=== PATIENT | female | born 1975 ===

== ENCOUNTER 2016-05-29 10:21 | Emergency (ER) | payer MEDICAID, OTHER ==
[2016-05-29 10:33] VITALS: BMI 22.4
[2016-05-29 11:58] LABS: BASO % 0.6 % (0.0-2.0); EOS # 0.1 K/uL (0.0-0.7); EOS % 1.1 % (0.0-4.0); HEMATOCRIT 37.8 % (34.0-47.0); LYMPH # 1.6 K/uL (1.0-4.3); LYMPH % 23.5 % (20.0-40.0); MEAN CELL VOLUME 85.7 fL (81.0-99.0); MEAN CORPUSCULAR HEMOGLOBIN 28.7 pg (27.0-31.0); MEAN CORPUSCULAR HGB CONC 33.5 g/dL (33.0-37.0); MEAN PLATELET VOLUME 9.6 fL (7.2-11.7); MONO # 0.5 K/uL (0.0-0.8); MONO % 7.6 % (0.0-10.0); RED CELL DISTRIBUTION WIDTH 14.6 % (11.5-14.5); WHITE BLOOD COUNT 6.6 K/uL (4.8-10.8)
[2016-05-29 12:08] LABS: CHLORIDE 103 mmol/L (98-107)
[2016-05-29 12:09] LABS: SODIUM 143 mmol/L (132-148)
[2016-05-29 12:11] LABS: ALB/GLOB RATIO 1.5 (1.0-2.1); AST/SGOT 19 U/L (14-36); BILIRUBIN,TOTAL 0.6 mg/dL (0.2-1.3); BLOOD UREA NITROGEN 10 mg/dL (7-17); CARBON DIOXIDE 24 mmol/L (22-30); GFR AFRICAN-AMERICAN > 60; TOTAL PROTEIN 7.7 g/dL (6.3-8.3)
[2016-05-29 12:12] LABS: ALKALINE PHOSPHATASE 60 U/L (38-126); ALT/SGPT 15 U/L (9-52); CALCIUM 8.9 mg/dl (8.6-10.4); GLUCOSE,RANDOM 95 mg/dL (65-105)
[2016-05-29 12:13] LABS: INR 1.1
--- NOTE | 2016-05-29 12:13 | C.PDOC ---
History Of Present Illness 41 year old patient presents to the ED complaining of posterior aspect of the head and neck pain for the past 5 months. Patient states she has mild relief of pain after taking Motrin. Patient was hospitalized here in August 2014 for a headache while she was . 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 Patient did not follow up with a neurologist. The pain is worse with bending the neck down. Patient denies fever, chills, numbness weakness, tingling sensation, or trauma. Time Seen by Provider: 05/29/16 11:04 Chief Complaint (Nursing): Back Pain History Per: Patient History/Exam Limitations: no limitations Onset/Duration Of Symptoms: Other (5 months) Current Symptoms Are (Timing): Still Present Quality Of Discomfort: "Pain" Severity: Mild Pain Scale Rating Of: 3 Previous Symptoms: Neck Pain Associated Symptoms: None Exacerbating Factor(s): Other (bending neck down) Recent travel outside of the [place]: No Past Medical History Reviewed: Historical Data, Nursing Documentation, Vital Signs Vital Signs: Last Vital Signs Temp 98.3 F 05/29/16 10:42 Pulse 82 05/29/16 10:42 Resp 20 05/29/16 10:42 BP 101/64 05/29/16 10:42 Pulse Ox 98 05/29/16 10:42 - Medical History PMH: Denies: Deep Vein Thrombosis (on anticoagulants) Surgical History: - [facility] Procedures ESOPHAGOGASTRODUODENOSCOPY [EGD] W/CLOSED BIOPSY (06/17/13) Family History: States: Unknown Family Hx - Social History Hx Tobacco Use: No Hx Alcohol Use: No Hx Substance Use: No - Immunization History Hx Tetanus Toxoid Vaccination: No Hx Influenza Vaccination: No Hx Pneumococcal Vaccination: No Review Of Systems Except As Marked, All Systems Reviewed And Found Negative. Constitutional: Negative for: Fever, Chills Musculoskeletal: Positive for: Neck Pain Neurological: Positive for: Headache (posterior aspect). Negative for: Weakness , Numbness Physical Exam - Physical Exam Appears: Non-toxic, No Acute Distress Skin: Warm, Dry Head: Atraumatic, Normacephalic Eye(s): bilateral: PERRL, EOMI Ear(s): Bilateral: Normal Nose: Normal Oral Mucosa: Moist Neck: Normal ROM, No Midline Cervical Tenderness, Supple Chest: Symmetrical Cardiovascular: Rhythm Regular Respiratory: Normal Breath Sounds, No Rales, No Rhonchi, No Wheezing Gastrointestinal/Abdominal: Soft, No Tenderness Back: Normal Inspection, No CVA Tenderness Extremity: Normal ROM Neurological/Psych: Oriented x3, Normal Speech, Normal Cognition, Normal Cranial Nerves, Normal Motor, Normal Sensation Gait: Steady ED Course And Treatment - Laboratory Results Result Diagrams: 05/29/16 11:49 05/29/16 11:49 O2 Sat by Pulse Oximetry: 98 (RA) Pulse Ox Interpretation: Normal - PA / SWATCHER / Resident Statement MD/DO has reviewed & agrees with the documentation as recorded. - Scribe Statement The provider has reviewed the documentation as recorded by the Scribe Mae Rodriguez All medical record entries made by the Scribe were at my direction and personally dictated by me. I have reviewed the chart and agree that the record accurately reflects my personal performance of the history, physical exam, medical decision making, and the department course for this patient. I have also personally directed, reviewed, and agree with the discharge instructions and disposition.
--- NOTE | 2016-05-29 12:21 | C.PDOC ---
History Of Present Illness 41 year old patient presents to the ED complaining of posterior aspect of the head and neck pain for the past 5 months. Patient states she has mild relief of pain after taking Motrin. Patient was hospitalized here in August 2014 for a headache while she was . 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 Patient did not follow up with a neurologist. The pain is worse with bending the neck down. Patient denies fever, chills, numbness weakness, tingling sensation, or trauma. Time Seen by Provider: 05/29/16 11:04 Chief Complaint (Nursing): Back Pain History Per: Patient History/Exam Limitations: no limitations Onset/Duration Of Symptoms: Other (5 months) Current Symptoms Are (Timing): Still Present Quality Of Discomfort: "Pain" Severity: Moderate Pain Scale Rating Of: 4 Previous Symptoms: Neck Pain Associated Symptoms: None Exacerbating Factor(s): Other (bending neck down) Recent travel outside of the [place]: No Past Medical History Reviewed: Historical Data, Nursing Documentation, Vital Signs Vital Signs: Last Vital Signs Temp 98.2 F 05/29/16 14:32 Pulse 64 05/29/16 14:32 Resp 18 05/29/16 14:32 BP 101/65 05/29/16 14:32 Pulse Ox 98 05/29/16 16:05 - Medical History PMH: Denies: Deep Vein Thrombosis (on anticoagulants) Surgical History: - [facility] Procedures ESOPHAGOGASTRODUODENOSCOPY [EGD] W/CLOSED BIOPSY (06/17/13) Family History: States: Unknown Family Hx - Social History Hx Tobacco Use: No Hx Alcohol Use: No Hx Substance Use: No - Immunization History Hx Tetanus Toxoid Vaccination: No Hx Influenza Vaccination: No Hx Pneumococcal Vaccination: No Review Of Systems Except As Marked, All Systems Reviewed And Found Negative. Constitutional: Negative for: Fever, Chills Musculoskeletal: Positive for: Neck Pain Neurological: Positive for: Headache (posterior aspect). Negative for: Weakness , Numbness Physical Exam - Physical Exam Appears: Non-toxic, No Acute Distress Skin: Warm, Dry Head: Atraumatic, Normacephalic Eye(s): bilateral: PERRL, EOMI Ear(s): Bilateral: Normal Nose: Normal Oral Mucosa: Moist Throat: Normal Neck: Normal ROM, No Midline Cervical Tenderness, Supple Chest: Symmetrical Cardiovascular: Rhythm Regular Respiratory: Normal Breath Sounds, No Rales, No Rhonchi, No Wheezing Gastrointestinal/Abdominal: Soft, No Tenderness Back: Normal Inspection, No CVA Tenderness Extremity: Normal ROM Neurological/Psych: Oriented x3, Normal Speech, Normal Cognition, Normal Cranial Nerves, Normal Motor, Normal Sensation Gait: Steady ED Course And Treatment - Laboratory Results Result Diagrams: 05/29/16 11:49 05/29/16 11:49 O2 Sat by Pulse Oximetry: 98 (room air) Pulse Ox Interpretation: Normal - CT Scan/US Cspine CT Other Rad Studies (CT/US): Read By Radiologist (Jayjay Baltazar), Radiology Report Reviewed CT/US Interpretation: EXAM: CT Cervical Spine With Intravenous Contrast. CLINICAL HISTORY: 41 years old, female; Condition or disease; Other: Chiari 1 malformation; Additional info: Neck pain. and CAST x 5 mo. TECHNIQUE: Axial computed tomography images of the cervical spine with intravenous contrast. This CT exam. was performed using one or more of the following dose reduction techniques: automated exposure. control, adjustment of the mA and/or kV according to patient size, and/or use of iterative. reconstruction technique. CONTRAST: 100 mL of VISIPAQUE administered intravenously. COMPARISON: MR - SPINAL CANAL CERVICAL W/O CONT 08/30/2014 10:30:56 AM. FINDINGS: Vertebrae: Unremarkable. No acute fracture. Discs/spinal canal/neural foramina: No acute findings. No spinal canal stenosis. Soft tissues: Unremarkable. Vasculature: The patient is left vertebral artery dominant. Oropharynx: The cerebellar tonsils are low-lying consistent with patient's known history of Chiari 1. malformation. Thyroid: There is a 1 cm right thyroid nodule. Lung apices: Unremarkable as visualized. Other findings: There is a poorly defined cervical syrinx. This has been described previously. Followup MRI if clinically indicated. IMPRESSION: 1. There is a poorly defined cervical syrinx. This has been described previously. Followup MRI if. clinically indicated. 2. The cerebellar tonsils are low-lying consistent with patient's known history of Chiari 1. malformation. Head CT Other Rad Studies (CT/US): Read By Radiologist (Jayjay Baltazar), Radiology Report Reviewed CT/US Interpretation: EXAM: CT Head With Intravenous Contrast. CLINICAL HISTORY: 41 years old, female; Condition or disease; Other: Chiari 1 malformation; Additional info: CAST x 5. months. TECHNIQUE: Axial computed tomography images of the head/brain with intravenous contrast. This CT exam was. performed using one or more of the following dose reduction techniques: automated exposure. control, adjustment of the mA and/or kV according to patient size, and/or use of iterative. reconstruction technique. CONTRAST: 100 mL of VISIPAQUE administered intravenously. COMPARISON: CT - HEAD W/O CONTRAST 08/28/2014 12:37:40 PM. FINDINGS: Brain: The cerebellar tonsils are low-lying. Patient has a known history of Chiari 1 malformation. No. hemorrhage. Ventricles: Unremarkable. No ventriculomegaly. Bones/joints: Unremarkable. No acute fracture. Soft tissues: Unremarkable. Sinuses: There is a left maxillary sinus air-fluid level. Mastoid air cells: Unremarkable as visualized. No mastoid effusion. Sella: The pituitary is prominent. Clinical findings will determine the need for further evaluation with. MRI. IMPRESSION : 1. The cerebellar tonsils are low-lying. Patient has a known history of Chiari 1 malformation. 2. The pituitary is prominent. Clinical findings will determine the need for further evaluation with MRI. 3. There is a left maxillary sinus air-fluid level. Medical Decision Making Medical Decision Making: pt currently nurses her 15 month old child. aviation electrical technician aware and will inform us for how long pt will need to pump and dump breast milk before she may resume . [address] scans of cervical spine and head show no acute findings. will refer pt to med clinic and to neurology. pt made aware to pump and dump for 24 hours. Disposition - Disposition Referrals: Clinic,Med Surg [Primary Care Provider] - Rolando Mercedes MD [Staff Provider] - [facility] [Outside] [facility] [Outside] Disposition: HOME/ ROUTINE Disposition Time: 16:17 Condition: STABLE Additional Instructions: [place] Ibuprofen 600 mg por va oral cada 6 horas. [place] Tylenol (acetaminofeno) 1000 mg por va oral cada 6 horas. [place] Omeprazol a la hora de acostarse. Seguimiento en clnica mdica y con neurlogo. Para las prximas 24 horas. Vaciar toda la leche materna. Usted puede comenzar a amamantar de nuevo despus de eso Forms: Gen Discharge Inst Romanian - Clinical Impression Clinical Impression: Headache, Chiari I malformation - PA / ROAST MASTER / Resident Statement MD/DO has reviewed & agrees with the documentation as recorded. - Scribe Statement The provider has reviewed the documentation as recorded by the Scribe Mae Rodriguez All medical record entries made by the Scribe were at my direction and personally dictated by me. I have reviewed the chart and agree that the record accurately reflects my personal performance of the history, physical exam, medical decision making, and the department course for this patient. I have also personally directed, reviewed, and agree with the discharge instructions and disposition.
[2016-05-29] MEDS ORDERED: Iodixanol 320 MG/ML 100 ML BOTTLE IV ONE (13:38)
[2016-05-29 14:32] VITALS: RESP 18; TEMP 98.2
--- NOTE | 2016-05-29 16:05 | CT ---
PROCEDURE: CT HEAD WITH CONTRAST HISTORY: wooten x 5 months COMPARISON: Comparison made with prior MRI of the cervical spine dated 08/30/2014. Comparison also made with MRI of the cervical spine dated 08/28/2014. TECHNIQUE: Axial computed tomography images were obtained through the head/brain with intravenous contrast. Contrast dose: 100 cc of of Visipaque 320 contrast material Radiation dose: Total exam DLP = 824.23 MGy-cm. This CT exam was performed using one or more of the following dose reduction techniques: Automated exposure control, adjustment of the mA and/or kV according to patient size, and/or use of iterative reconstruction technique. FINDINGS: HEMORRHAGE: No acute parenchymal, subarachnoid or extra-axial hemorrhage. BRAIN: No enhancing parenchymal nor extra-axial masses or collections seen on this noncontrast study. No evidence of abnormal meningeal enhancement. Ventricular and sulcal size are within range of normal for this patient's stated age. Re- demonstrated is evidence of herniation of cerebellar tonsils through the foramen magnum consistent with Chiari 1 malformation. Previously noted syrinx cavity in the upper cervical spine not appreciated on this study. Note that these changes are seen to better advantage on prior MRI of the brain and cervical spine. Please refer to those prior MRI reports for additional details. Note again made of prominent pituitary gland felt to be physiologic. VENTRICLES: No evidence of obstructive hydrocephalus. CALVARIUM: Calvarium is intact. PARANASAL SINUSES: Mucosal thickening left maxillary antrum. Small fluid level not excluded. There is also a minor mucosal thickening seen within several posterior ethmoid air cells. MASTOID AIR CELLS: Unremarkable as visualized. No mastoid effusion. OTHER FINDINGS: Orbits and contents unremarkable. IMPRESSION: Findings consistent with Chiari 1 malformation. No evidence of obstructive hydrocephalus. Prominent pituitary gland felt to be physiologic. Mild mucosal thickening with questionable small fluid level left maxillary antrum. .
--- NOTE | 2016-05-29 16:17 | CT ---
PROCEDURE: CT Cervical Spine without contrast HISTORY: <neck pain and wooten x 5 mo> COMPARISON: Comparison made with prior MRI of the cervical spine dated 08/30/2014. TECHNIQUE: Axial computed tomography images were obtained of the cervical spine without the use of intravenous contrast (100 cc Visipaque 320 contrast material). Coronal and sagittal reformatted images were created and reviewed. Radiation dose: Total exam DLP = 135.71. MGy-cm. This CT exam was performed using one or more of the following dose reduction techniques: Automated exposure control, adjustment of the mA and/or kV according to patient size, and/or use of iterative reconstruction technique. FINDINGS: VERTEBRAE: No fracture. Normal alignment. No destructive bony lesion. DISCS/SPINAL CANAL/NEURAL FORAMINA: No significant central canal or neural foraminal stenosis. Discs heights are grossly preserved. PARASPINAL SOFT TISSUES: Unremarkable. OTHER FINDINGS: Re- demonstrated is herniation of cerebellar tonsils through the foramen magnum the consistent with Chiari 1 malformation. Previously noted syrinx cavity which was seen extending from the C2 through the T3 level is less well seen on this study as compared to high-resolution . Please refer that report for additional details. No abnormal enhancement is identified on this exam. Note made of ill-defined approximately 1 cm hypodense focus right lobe thyroid gland. . Slight heterogeneous appearance of the inferior aspect left lobe thyroid gland. . Recommend followup thyroid ultrasound. IMPRESSION: Chiari 1 malformation as described. Extensive syrinx cavity in the extending from the upper cervical through the upper thoracic spinal cord not appreciated on this study. Please refer to prior MRI of the cervical spine 08/30/2014 for additional details. . Ill-defined approximate 1 cm hypodense nodule right lobe thyroid gland. Recommend followup thyroid ultrasound.
[2016-05-29 16:24] VITALS: BP 112/68; PULSE 69; O2SAT 99
== END 2016-05-29 16:25 | disposition home or self-care (01) ==
LOC: SUPCPDRO 10:21 → C.ER 10:21
DX: G93.5 Compression of brain (principal); R51 Headache
CPT/HCPCS: 70460; 72126; 80053; 84703; 85025; 85610; 85730; 99284; Q9967

== ENCOUNTER 2016-10-04 14:35 | Emergency (ER) | payer OTHER, SELFPAY ==
[2016-10-04 14:35] VITALS: BMI 22.4
[2016-10-04 14:48] VITALS: BP 98/65; PULSE 82; RESP 18; TEMP 98.6; O2SAT 96
--- NOTE | 2016-10-04 15:42 | C.PDOC ---
History Of Present Illness 41 y/o female c/o worsening headache, cervical pain, facial paresthesia, and left leg weakness vs discoordination for the past 6 weeks. Patient was diagnosed with chiari malformation and cervical syrinx. Patient was evaluated by Dr. Larsen in July, though symptoms worsened ever since visit. Denies fever, chills, chest pain, SOB, neck pain, visual changes, photophobia, or any other complaints. Time Seen by Provider: 10/04/16 14:56 Chief Complaint (Nursing): Headache History Per: Patient History/Exam Limitations: no limitations Onset/Duration Of Symptoms: Days (6 weeks) Current Symptoms Are (Timing): Still Present Severity: Mild Associated Symptoms: Extremity Weakness (left leg). denies: Photophobia, Blurred Vision Recent travel outside of the [place]: No Additional History Per: Patient Past Medical History Reviewed: Historical Data, Nursing Documentation, Vital Signs Vital Signs: Last Vital Signs Temp 98.6 F 10/04/16 14:39 Pulse 82 10/04/16 14:39 Resp 18 10/04/16 14:39 BP 98/65 L 10/04/16 14:39 Pulse Ox 96 10/04/16 21:46 - Medical History PMH: Denies: Deep Vein Thrombosis (on anticoagulants), Chronic Kidney Disease Surgical History: - [facility] Procedures ESOPHAGOGASTRODUODENOSCOPY [EGD] W/CLOSED BIOPSY (06/17/13) Family History: States: Unknown Family Hx - Social History Hx Tobacco Use: No Hx Alcohol Use: No Hx Substance Use: No - Immunization History Hx Tetanus Toxoid Vaccination: No Hx Influenza Vaccination: No Hx Pneumococcal Vaccination: No Review Of Systems Except As Marked, All Systems Reviewed And Found Negative. Constitutional: Negative for: Fever, Chills Eyes: Negative for: Vision Change, Other (Photophobia) Cardiovascular: Negative for: Chest Pain Respiratory: Negative for: Shortness of Breath Musculoskeletal: Positive for: Other (Cervical pain). Negative for: Neck Pain Neurological: Positive for: Weakness (Left leg weakness vs discoordination), Numbness (Facial paresthesia), Headache Physical Exam - Physical Exam Appears: Non-toxic, No Acute Distress Skin: Warm, Dry Head: Atraumatic, Normacephalic Neck: Trachea Midline, No Midline Cervical Tenderness, Supple Cardiovascular: Rhythm Regular Respiratory: Normal Breath Sounds, No Rales, No Rhonchi, No Wheezing Gastrointestinal/Abdominal: Soft, No Tenderness Extremity: Normal ROM, Capillary Refill, Other (<2secs) Extremity: Bilateral: Normal Color And Temperature Pulses: Left Dorsalis Pedis: Normal, Right Dorsalis Pedis: Normal Neurological/Psych: Oriented x3, Normal Speech, Normal Cognition Gait: Steady ED Course And Treatment O2 Sat by Pulse Oximetry: 96 (RA) Pulse Ox Interpretation: Normal Medical Decision Making Medical Decision Making: Impression: 41 y/o female c/o worsening headache, cervical pain, facial paresthesia, left leg weakness vs discoordination for the past 6 weeks. Plans: * Tylenol MRI C/ of C-Spine and T-Spine show improvement of Cervical/thoracic syrinx 1545: d/w Dr. Interiano covering Dr. Cary- on . pt's c/o worstening over past 6 weeks of symptoms of headache, cervical headache pain, facial parasthesias, dysphagia, occasional dizziness and L leg weakness vs discoordination are prob realted to Michelle malformation and is non- emergent per Dr. Interiano, ok to f/u in office with Dr. Cary next week , to call for appt. Disposition Doctor Will See Patient In The: Office Counseled Patient/Family Regarding: Studies Performed, Diagnosis - Disposition Referrals: Ash Cary MD [Staff Provider] - Disposition: HOME/ ROUTINE Disposition Time: 15:45 Condition: GOOD Additional Instructions: [place] oficina para hacer jonh- Sigue tylenol para roxann de aamir No [facility]. Instructions: Chiari Malformation (GEN) Forms: [employer] (Syriac) Print Language: [place] - Clinical Impression Clinical Impression: Syrinx of spinal cord, Chiari malformation type I - Scribe Statement The provider has reviewed the documentation as recorded by the Scribe Arely parker All medical record entries made by the Scribe were at my direction and personally dictated by me. I have reviewed the chart and agree that the record accurately reflects my personal performance of the history, physical exam, medical decision making, and the department course for this patient. I have also personally directed, reviewed, and agree with the discharge instructions and disposition.
== END 2016-10-04 16:34 | disposition home or self-care (01) ==
LOC: C.ER 14:35
DX: G95.89 Other specified diseases of spinal cord (principal); G93.5 Compression of brain

== ENCOUNTER 2017-01-16 07:30 | Inpatient (IN) | payer OTHER ==
[2017-01-10 09:53] VITALS: BMI 22.8
[2017-02-15] MEDS ORDERED: Midazolam 2 MG/2 ML VIAL ONE (10:22)
[2017-02-15] MEDS ORDERED: Propofol 10 mg/ml Inj (20 ML) ONE (10:22)
[2017-02-15] MEDS ORDERED: Thrombin Topical 5,000 Int Units Spray Kit ONE (10:27)
[2017-02-15] MEDS ORDERED: Lidocaine 2% w Epi 1:100,000 Inj IJ ONE (10:27)
[2017-02-15] MEDS ORDERED: Bacitracin Ointment 30 GM TUBE ONE (10:27)
[2017-02-15] MEDS ORDERED: Absorbable Gelatin Sponge Size 100 ONE (10:27)
[2017-02-15] MEDS ORDERED: ceFAZolin IV 1 gm in Dextrose 1 GM/50 ML BAG IVPB ONE (10:27)
[2017-02-15] MEDS ORDERED: Remifentanil 1 mg/3 ml Vial IV ONE (10:30)
[2017-02-15] MEDS ORDERED: Propofol 10 mg/ml 1,000 MG/100 ML VIAL ONE ×2 (10:30)
[2017-02-15] MEDS ORDERED: Heparin 30,000 UNITS in Sodium Chloride 0.9% 1,000 ML IV ONE (11:00)
--- NOTE | 2017-02-15 12:42 | PCM.SURG1 ---
Surgeon's Initial Post Op Note - Surgeon's Notes Surgeon: litzy Micro Paleontologist: siva Type of Anesthesia: General Endo Pre-Operative Diagnosis: arnold chiari 1 Operative Findings: cerebellar tonsil ectopia Post-Operative Diagnosis: same Operation Performed: suboccipital craniectomy, c1 laminectomy, duraplasty right cerebellar tonsilectomy Specimen/Specimens Removed: none Estimated Blood Loss: EBL {In ML}: 50 Blood Products Given: N/A Drains Used: No Drains Post-Op Condition: Good Date of Surgery/Procedure: 02/15/17 Time of Surgery/Procedure: 12:42
[2017-02-15] MEDS: HYDROmorphone 0.5 mg/0.5 ml ISec IVP PRN ×4 (13:01→15:47)
[2017-02-15] MEDS: Potassium Ch 20mEq in D5-1/2NS 1,000 ML IV SCH (14:07)
[2017-02-15] MEDS ORDERED: Dexamethasone 4 mg/1 ml IVP STA (14:23)
[2017-02-15] MEDS: Oxycodone/Acetaminophen 5/325 mg Tab PO PRN ×2 (18:05→22:14)
[2017-02-16] MEDS: Oxycodone/Acetaminophen 5/325 mg Tab PO PRN (03:22)
[2017-02-16] MEDS: Potassium Ch 20mEq in D5-1/2NS 1,000 ML IV SCH (05:54)
--- NOTE | 2017-02-16 07:04 | OP ---
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 OPERATIVE PROCEDURE: Suboccipital craniectomy, laminectomy, arch of C1, duraplasty and right cerebellar tonsillectomy. SURGEON: Ash Cary MD. SALES CORRESPONDENCE CLERK: Jose Antonio Interiano MD. DESCRIPTION OF PROCEDURE: The patient was brought to the operating room, intubated appropriately, placed into [facility] patented hogshead assembler, turned prone on bolsters and secured on the operating room table. Head was kept in a slightly flexed but neutral position. The suboccipital area was prepped and draped in usual manner after clipping off the lower aspect of her hair and a midline incision was marked down to just below the spinous process of C2. After prepping and draping, the incision was instilled with lidocaine with epinephrine and taken sharply to the skin and subcuticular tissue. In the midline, the fascial plane was divided using electrocautery and the occipitalis muscles were stripped off the base of occiput and the posterior spinal muscles were stripped off the arch of C1 and the upper portion of C2 arch as well as all intervening tissue as far out as the medial facet joints. We identified the foramen magnum and then used a curved curette to undermine the arch of C1 inferiorly and then we used a Kerrison rongeur to bite away the arch of C1 as far out as the full extent of the foramen magnum. We then used a curved curette to again undermine the ligamentum from the foramen magnum and used a Kerrison rongeur to bite away the suboccipital bone performing an appropriate-sized craniectomy. At this point, the interlaminar ligaments were then elevated off the dura and divided and cauterized back and a midline incision was made in the dura from above the foramen magnum until almost the superior extent of the arch of C2 to further decompress the underlying neural elements. As soon as the dura was opened, CSF squirted out under high pressure and then the right cerebellar tonsil herniated out through the dural opening. At this point, the right cerebellar tonsil, the inferior portion of it anyway was cauterized with the bipolar cautery and dissection was used to remove the remaining small aspect of the inferior portion of the tonsil and the underlying intradural contents appeared to be under no pressure at this point and CSF percolated out under normal pressure. A piece of DuraGen Plus was then cut to size, placed over the dural opening and tacked in place with Nurolon sutures. This was then covered with a larger piece of DuraGen followed by DuraSeal, which covered the entire exposed dural area. The muscle and fascia were then reapproximated multiple layers with 0 Vicryl, subcuticular 2-0 Vicryl, skin erna were applied to the skin edge. Sterile dressing was applied. The patient was turned onto her bed, removed from the [facility] patented hogshead assembler, extubated, and found to be moving all extremities with good strength, following commands. She was taken to recovery room in stable condition. Blood loss approximately 50 mL. All counts were correct. No specimen was sent. Ash Cary MD
[2017-02-16] MEDS ORDERED: Acetaminophen-Codeine 300/30 mg Tab PO PRN (09:34)
--- NOTE | 2017-02-16 10:19 | CP.PCM.PN ---
Subjective - Date & Time of Evaluation Date of Evaluation: 02/16/17 Time of Evaluation: 10:14 - Subjective Subjective: post of day 1 still complain of headache, which is normal neuro intact oob ambulating had some urinary retention this AM but remarks that this is common for her in the mornings She was able to void well last night Bladder scan at 9am 200 complains percocet too jyoti cannot d/c home because of urinary retention Will st cath if not voided by 11am switch to tylenol with codine if st cath required will call urology consult Objective - Vital Signs/Intake and Output Vital Signs (last 24 hours): Temp Pulse Resp BP Pulse Ox 99.8 F H 86 18 109/67 97 02/16/17 07:40 02/16/17 07:40 02/16/17 07:40 02/16/17 07:40 02/16/17 07:40 - Medications Medications: Current Medications Acetaminophen (Tylenol 325mg Tab) 650 mg PO Q4 PRN PRN Reason: Headache Acetaminophen/Codeine Phosphate (Tylenol/Codeine 300 Mg/30 Mg) 1 ea PO Q4 PRN PRN Reason: Pain, moderate (4-7) Amitriptyline HCl (Elavil) 25 mg PO BID [facility] Potassium Chloride/Dextrose/Sod Cl (Potassium Chl 20 Meq In D5-1/2ns) 1,000 mls @ 60 mls/hr IV .[id number] [facility] Last Admin: 02/16/17 05:54 Dose: 60 mls/hr Ondansetron HCl (Zofran Inj) 4 mg IVP Q6 PRN PRN Reason: Nausea/Vomiting Pneumococcal Polyvalent Vaccine (Pneumovax 23 Vaccine) 0.5 ml IM .ONCE ONE Stop: 02/17/17 10:01
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
[2017-02-17 08:06] LABS: BASO % 0.4 % (0.0-2.0); EOS % 0.2 % (0.0-4.0); HEMOGLOBIN 11.7 g/dL (11.0-16.0); LYMPH # 1.2 K/uL (1.0-4.3); LYMPH % 13.4 % (20.0-40.0); MEAN CELL VOLUME 84.6 fL (81.0-99.0); MEAN CORPUSCULAR HEMOGLOBIN 29.5 pg (27.0-31.0); MEAN CORPUSCULAR HGB CONC 34.9 g/dL (33.0-37.0); MEAN PLATELET VOLUME 9.1 fL (7.2-11.7); MONO # 0.5 K/uL (0.0-0.8); NEUT # 6.9 K/uL (1.8-7.0); RBC 3.96 Mil/uL (3.80-5.20); RED CELL DISTRIBUTION WIDTH 14.1 % (11.5-14.5); WHITE BLOOD COUNT 8.6 K/uL (4.8-10.8)
[2017-02-17 08:36] LABS: ALB/GLOB RATIO 1.4 (1.0-2.1); ALBUMIN 4.4 g/dL (3.5-5.0); ALT/SGPT 28 U/L (9-52); AST/SGOT 19 U/L (14-36); BLOOD UREA NITROGEN 10 mg/dL (7-17); CALCIUM 8.7 mg/dl (8.6-10.4); GFR AFRICAN-AMERICAN > 60; GFR NON-AFRICAN AMERICAN > 60
[2017-02-17] MEDS ORDERED: Pneumococcal 23-Valent Vaccine IM ONE (10:00)
[2017-02-17] MEDS ORDERED: Influenza Vaccine 60 mcg/0.5 mL SYR (4YR UP) IM ONE (10:00)
--- NOTE | 2017-02-17 10:30 | CP.PCM.PN ---
Subjective - Date & Time of Evaluation Date of Evaluation: 02/17/17 Time of Evaluation: 10:28 - Subjective Subjective: fully awake alert\st good wound clean still having urinary retention old problem predates surgery Urology consulted Spoke to hospitalist and agreed to accept pt in transfer to her service Objective - Vital Signs/Intake and Output Vital Signs (last 24 hours): Temp Pulse Resp BP Pulse Ox 99.2 F 91 H 20 96/60 L 97 02/17/17 07:40 02/17/17 07:40 02/17/17 07:40 02/17/17 07:40 02/17/17 07:40 Intake and Output: 02/17/17 02/17/17 06:59 18:59 Intake Total 200 Output Total 1275 Balance -1075 - Medications Medications: Current Medications Acetaminophen (Tylenol 325mg Tab) 650 mg PO Q6 PRN PRN Reason: Headache and Fever Last Admin: 02/17/17 06:04 Dose: 650 mg Acetaminophen/Codeine Phosphate (Tylenol/Codeine 300 Mg/30 Mg) 1 ea PO Q4 PRN PRN Reason: Pain, moderate (4-7) Amitriptyline HCl (Elavil) 25 mg PO BID [facility] Last Admin: 02/16/17 10:41 Dose: 25 mg Potassium Chloride/Dextrose/Sod Cl (Potassium Chl 20 Meq In D5-1/2ns) 1,000 mls @ 60 mls/hr IV .[id number] [facility] Last Admin: 02/16/17 05:54 Dose: 60 mls/hr Ondansetron HCl (Zofran Inj) 4 mg IVP Q6 PRN PRN Reason: Nausea/Vomiting Last Admin: 02/16/17 15:53 Dose: 4 mg - Labs Labs: 02/17/17 07:58 02/17/17 07:58
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
[2017-02-17 13:56] LABS: BASO % 0.5 % (0.0-2.0); EOS % 0.5 % (0.0-4.0); HEMOGLOBIN 11.9 g/dL (11.0-16.0); LYMPH # 1.4 K/uL (1.0-4.3); LYMPH % 17.9 % (20.0-40.0); MEAN CELL VOLUME 84.8 fL (81.0-99.0); MEAN CORPUSCULAR HEMOGLOBIN 29.3 pg (27.0-31.0); MEAN CORPUSCULAR HGB CONC 34.5 g/dL (33.0-37.0); MEAN PLATELET VOLUME 8.9 fL (7.2-11.7); MONO # 0.5 K/uL (0.0-0.8); MONO % 6.2 % (0.0-10.0); NEUT # 5.8 K/uL (1.8-7.0); NEUT % 74.9 % (50.0-75.0); RBC 4.08 Mil/uL (3.80-5.20); RED CELL DISTRIBUTION WIDTH 14.1 % (11.5-14.5); WHITE BLOOD COUNT 7.8 K/uL (4.8-10.8)
[2017-02-17 14:21] LABS: ALB/GLOB RATIO 1.3 (1.0-2.1); ALBUMIN 4.5 g/dL (3.5-5.0); ALT/SGPT 32 U/L (9-52); AST/SGOT 22 U/L (14-36); BLOOD UREA NITROGEN 10 mg/dL (7-17); CALCIUM 8.8 mg/dl (8.6-10.4); GFR AFRICAN-AMERICAN > 60; GFR NON-AFRICAN AMERICAN > 60
[2017-02-17 14:27] LABS: SQUAMOUS EPITHIAL 2 /hpf (0-5); URINE BACTERIA FEW (<OCC); URINE BILIRUBIN NEGATIVE (NEGATIVE); URINE BLOOD 2+ (NEGATIVE); URINE CLARITY Clear (Clear); URINE COLOR Yellow (YELLOW); URINE GLUCOSE (UA) NORMAL (Normal); URINE LEUKOCYTE ESTERASE NEG Leu/uL (Negative); URINE NITRATE NEGATIVE (NEGATIVE); URINE PROTEIN NEGATIVE (NEGATIVE)
[2017-02-17] MEDS: Potassium Ch 20mEq in D5-1/2NS 1,000 ML IV SCH (16:00)
--- NOTE | 2017-02-17 16:29 | CP.PCM.PN ---
<Ashley Ding - Last Filed: 02/17/17 17:21> Subjective - Date & Time of Evaluation Date of Evaluation: 02/17/17 Time of Evaluation: 07:00 - Subjective Subjective: PGY1-Medicine Note-Dr. Oneal's Service Patient seen and examined and in no acute distress. Patient says she is having head pain in the back at the site of her surgery. Patient says sometimes the pain medication makes her nauseous. Patient denies any vomiting. Patient was having urinary retention this morning and was straight cathed for relief. Patient says she tries to urinate, but only a little bit comes out. Patient denies any shortness of breath, chest pain, or abdominal pain. Objective - Vital Signs/Intake and Output Vital Signs (last 24 hours): Temp Pulse Resp BP Pulse Ox 99.2 F 91 H 20 96/60 L 97 02/17/17 07:40 02/17/17 07:40 02/17/17 07:40 02/17/17 07:40 02/17/17 07:40 Intake and Output: 02/17/17 02/17/17 06:59 18:59 Intake Total 200 400 Output Total 1275 400 Balance -1075 0 - Medications Medications: Current Medications Acetaminophen (Tylenol 325mg Tab) 650 mg PO Q6 PRN PRN Reason: Headache and Fever Last Admin: 02/17/17 12:55 Dose: 650 mg Acetaminophen/Codeine Phosphate (Tylenol/Codeine 300 Mg/30 Mg) 1 ea PO Q4 PRN PRN Reason: Pain, moderate (4-7) Amitriptyline HCl (Elavil) 25 mg PO BID [facility] Last Admin: 02/16/17 10:41 Dose: 25 mg Potassium Chloride/Dextrose/Sod Cl (Potassium Chl 20 Meq In D5-1/2ns) 1,000 mls @ 60 mls/hr IV .[id number] [facility] Last Admin: 02/16/17 05:54 Dose: 60 mls/hr Ondansetron HCl (Zofran Inj) 4 mg IVP Q6 PRN PRN Reason: Nausea/Vomiting Last Admin: 02/16/17 15:53 Dose: 4 mg - Labs Labs: 02/17/17 13:47 02/17/17 13:47 Assessment and Plan - Assessment and Plan (Free Text) Assessment: POD #1 of suboccipital craniectomy, c1 laminectomy, duraplasty right cerebellar tonsilectomy * management as per Dr. Cary (neurosurg) * Tylenol 650mg po q6h prn * Tylenol/Codeine 300mg/30mg po q4h prn * Zofran 4mg q6h PRN Urinary Retention UA: 2+blood, 2 urobilinogen, 13RBC, few bacteria f/u Urine Culture Amitriptyline being held due to a potential side effect of urinary retention. HgBA1C: 5.3 - rules out diabetes straight cath prn Urology Consult (Randy Cherokee), help appreciated Neuro consulted, Dr. Mercedes, help appreciated * f/u CT of lumbar spine with contrast ordered (hx of syrinx of spinal cord) * MRI contraindicated due to erna from neurosurg Hypokalemia * K+ 3.5 * KCl 20meq in D5 1/2NS at 60cc/hr * continue to monitor Hx Protein S deficiency Heme/ Onc consulted, Dr. Gerard, help appreciated Prophylaxis GI: Pepcid 20mg po daily DVT: no chemical anticoagulation until 12/21 as per neurosurg, SCDs <Morena Oneal V - Last Filed: 02/18/17 07:38> Objective - Vital Signs/Intake and Output Vital Signs (last 24 hours): Temp Pulse Resp BP Pulse Ox 99.2 F 94 H 20 92/59 L 95 02/17/17 23:50 02/17/17 23:50 02/17/17 23:50 02/17/17 23:50 02/17/17 23:50 Intake and Output: 02/18/17 02/18/17 06:59 18:59 Intake Total 1080 Balance 1080 - Medications Medications: Current Medications Acetaminophen (Tylenol 325mg Tab) 650 mg PO Q6 PRN PRN Reason: Headache and Fever Last Admin: 02/18/17 04:48 Dose: 650 mg Amitriptyline HCl (Elavil) 25 mg PO BID [facility] Last Admin: 02/16/17 10:41 Dose: 25 mg Famotidine (Pepcid) 20 mg PO DAILY [facility] Potassium Chloride/Dextrose/Sod Cl (Potassium Chl 20 Meq In D5-1/2ns) 1,000 mls @ 60 mls/hr IV .[id number] [facility] Last Admin: 02/17/17 16:00 Dose: 60 mls/hr Ondansetron HCl (Zofran Inj) 4 mg IVP Q6 PRN PRN Reason: Nausea/Vomiting Last Admin: 02/16/17 15:53 Dose: 4 mg - Labs Labs: 02/17/17 13:47 02/17/17 13:47 Attending/Attestation - Attestation I have personally seen and examined this patient.: Yes I have fully participated in the care of the patient.: Yes I have reviewed all pertinent clinical information, including history, physical exam and plan: Yes Notes (Text): This is a computer entry for 02/17/2017. Patient seen, examined, and discussed with biomedical engineering aide. Per neurosurgery standpoint patient is stable. Patient changed from neurosurgery service to hospital service and given urinary retention. Patient reports headache, denies chest pain denies dizziness denies cough denies abdominal pain is able to get up from bed and try to use the bathroom. Discussed with nursing staff, patient continues to have urinary retention and requires both a bladder scan and straight cath. Awaiting UA which was apparently not received during the first order yesterday will be repeated and awaiting urine culture. Neurology consultation to rule out neurologic causes of urinary retention. Given patient's history of Arnold-Chiari malformation 1 and prior history of syrinx involving his cervical spine and thoracic spine as per review of prior MRIs available in the EMR. Please note addendum to neurology note for imaging is CT not MRI given the patient has erna from procedure. Urology consult in progress. Discussed case with Dr. Gilbert Padilla who is covering Mayte Padilla recommends for either straight cath or patient may go home with the Fermin and follow-up at the office. Addendum to resident note today's post operative day 2 on neurosurgical procedure. Also note per neurosurgery recommended to be off Anticoagulation for at least 2 weeks. I have also discussed case with Dr. Wesley Gerard, Hematology-->given history of protein S deficiency associated with miscarriages. He recommends patient to follow-up with him as an outpatient given that if we draw a levels for her protein S in light of recent neurosurgical procedure they will be inaccurate. Assessment/Plan 1) Urinary Retention * Mayte Padilla (urology) on case-->help appreciated * Dr Mercedes (neurology) on case-->help appreciated * CT (not MRI) for syrinx * Reports difficulty urinating for the past 4 months Per nursing notes: * 02/16/70 * 800cc of Urine from Straight Catherization 02/17/16 * Bladder scanned pt after urination and showed >400 <500 residua * 02/18/16 * 316 cc of urine Bladder scan; 200 cc urine straight cath 02/18/16 AM * Patient refused straight cath in afternoon. Was able to void 100cc. Repeat bladder scan more than 300cc and straight cath. * Awaiting UA and urine culture * Will hold Amitriptyline on 02/16/17 due to a potential side effect of urinary retention. * Patient is not diabetic: a1c: 5.3 * monitor intake and out 2) History of Chiari malformation 1 s/p POD 2 suboccupital craniectomy, C1 laminectomy, duraplasty right cerebellar tonsillectomy Headache * CT Cervical spine (07/22/16): redemonstation of Chair 1 malformation with interval decrease in size of syrinx in the cervical cord ~3mm in anteroposterior dimension. Persistent mild increased distance between the anterior arch of tightness and odontoid process concerning for altantoaxial subluxation * Operative Note (02/15/17): suboccupital craniectomy, C1 laminectomy, duraplasty right cerebellar tonsillectomy * Neursurgery (Dr. López/Dr. Interiano) is primary and primary for preoperative/intraoperative/postoperative in regards to recent neurosurgery procedure * Anticoagulation per surgery * Pain management per surgery in light of headache * Patient could not tolerate percocet this AM, she threw up from it * From prior EMR 2014, patient had tolerated tylenol with codeine in the past * Tylenol 650mg POq6H PRN * Discontinue Amitriptline 25mg PO BID side effect urinary incontinence 3) History of Protein S deficiency * Discussed with heme-onc, to follow-up with him outpatient given drawing levels after surgery procedure will be inaccurate * Per neurosurgery, must be off anticoagulation for 2 weeks. Permits for SCDS, 4) DVT PPx * SCDs b/l
[2017-02-17] MEDS ORDERED: Iodixanol 320 MG/ML 100 ML BOTTLE IV ONE (16:35)
--- NOTE | 2017-02-17 19:01 | CT ---
PROCEDURE: CT scan lumbar spine dated 02/18/2016. HISTORY: Urinary retention. History of syrinx of spinal cord. The the the the COMPARISON: Correlation made with prior MRI of the thoracic spine 07/21/2016 TECHNIQUE: Contiguous helical/transaxial computed tomography images were obtained of the lumbar spine following intravenous injection of approximately 100 cc of of Visipaque 320 contrast material. . Coronal and sagittal reformatted images were created and reviewed. . Radiation dose: Total exam DLP = 324.44 mGy-cm. This CT exam was performed using one or more of the following dose reduction techniques: Automated exposure control, adjustment of the mA and/or kV according to patient size, and/or use of iterative reconstruction technique. . FINDINGS: VERTEBRAE: The current study reveals no acute compression fractures no retropulsed fragments. Vertebral bodies exhibit normal stature of. Vertebral bodies and facets normally aligned. DISCS/SPINAL CANAL/NEURAL FORAMINA: Disc space heights maintained. There are no disc herniations. Mild central and bilateral disc bulging noted at the L4-L5 level which flattens the ventral surface of the thecal sac. Facets are mildly hypertrophic and flavum somewhat buckled with resultant and minimal flattening of the posterolateral borders of the thecal sac bilaterally however the overall central canal appears adequate measured at midline. Exit foramina are also adequate. At the L5-S1 level, there is also minor central and bilateral disc bulging that reaches the ventral surface of the descending right-sided S1 nerve root however there is no significant compression or posterior displacement of the right-sided S1 root. No significant compressive effects on the thecal sac or left-sided S1 nerve root. Central canal appears adequate. Facets are slightly overgrown. Exit foramina adequate. The remaining levels exhibit relatively adequate disc height. No disc herniation or significant disc bulge. Central canal and exit foramina adequate. Lower thoracic spinal cord and conus poorly delineated on this study. There are no obvious extra-axial collections or hemorrhages seen. . PARASPINAL SOFT TISSUES: Paraspinal soft tissues appear grossly unremarkable. OTHER FINDINGS: The urinary bladder is moderately distended. There is an elliptical shaped sclerotic focus within the posterior inferior right iliac bone that is nonspecific though most likely represents a bone island or osteoma. IMPRESSION: Minor central and bilateral disc bulging changes seen at the L4-L5 and L5-S1 levels as described. No evidence of significant canal compromise. The distal thoracic spinal cord and conus poorly delineated on this exam.
[2017-02-18 01:43] VITALS: RESP 20
[2017-02-18 08:18] LABS: BASO % 0.7 % (0.0-2.0); EOS # 0.1 K/uL (0.0-0.7); EOS % 1.6 % (0.0-4.0); HEMOGLOBIN 11.8 g/dL (11.0-16.0); LYMPH # 1.4 K/uL (1.0-4.3); LYMPH % 25.2 % (20.0-40.0); MEAN CELL VOLUME 85.5 fL (81.0-99.0); MEAN CORPUSCULAR HEMOGLOBIN 29.6 pg (27.0-31.0); MEAN CORPUSCULAR HGB CONC 34.7 g/dL (33.0-37.0); MEAN PLATELET VOLUME 9.3 fL (7.2-11.7); MONO # 0.5 K/uL (0.0-0.8); MONO % 9.6 % (0.0-10.0); NEUT # 3.5 K/uL (1.8-7.0); NEUT % 62.9 % (50.0-75.0); RBC 3.99 Mil/uL (3.80-5.20); RED CELL DISTRIBUTION WIDTH 14.2 % (11.5-14.5); WHITE BLOOD COUNT 5.6 K/uL (4.8-10.8)
[2017-02-18 08:31] VITALS: PULSE 87; TEMP 98.6; O2SAT 98
[2017-02-18 08:32] LABS: ALB/GLOB RATIO 1.3 (1.0-2.1); ALBUMIN 4.2 g/dL (3.5-5.0); ALT/SGPT 27 U/L (9-52); AST/SGOT 24 U/L (14-36); BLOOD UREA NITROGEN 7 mg/dL (7-17); CALCIUM 8.6 mg/dl (8.6-10.4); GFR AFRICAN-AMERICAN > 60; GFR NON-AFRICAN AMERICAN > 60; MAGNESIUM 1.7 mg/dL (1.6-2.3)
[2017-02-18] MEDS ORDERED: Potassium Chloride 20 mEq ER Tab PO ONE (09:45)
[2017-02-18 09:52] VITALS: BP 109/69
[2017-02-18] MEDS: Acetaminophen-Codeine 300/30 mg Tab PO PRN ×2 (09:53→16:13)
[2017-02-18] MEDS ORDERED: Potassium Chloride 20 mEq ER Tab PO SCH (10:00)
--- NOTE | 2017-02-18 11:42 | CT ---
PROCEDURE: CT HEAD WITHOUT CONTRAST. HISTORY: 11/22 CAST, s/p neurosurg COMPARISON: Comparison is made to the previous study dated 05/29/2016 TECHNIQUE: Axial computed tomography images were obtained through the head/brain without intravenous contrast. Radiation dose: Total exam DLP = 877.54 mGy-cm. This CT exam was performed using one or more of the following dose reduction techniques: Automated exposure control, adjustment of the mA and/or kV according to patient size, and/or use of iterative reconstruction technique. FINDINGS: HEMORRHAGE: No intracranial hemorrhage. BRAIN: There is small 1.3 centimeter hypodensity seen in the posterior fossa posterior to the 4th ventricle slightly to the right of the midline may represent encephalomalacia/gliosis. Adjacent postsurgical changes and midline occipital craniectomy changes are noted. No atrophy or chronic microvascular ischemic changes. VENTRICLES: The ventricles appears mildly enlarged compared to the previous exam. Mild hydrocephalus is not totally excluded. CALVARIUM: Post midline occipital craniectomy above the magnum from is noted. PARANASAL SINUSES: Unremarkable as visualized. No significant inflammatory changes. MASTOID AIR CELLS: Unremarkable as visualized. No inflammatory changes. OTHER FINDINGS: None. IMPRESSION: 1.3 centimeter focal hypodensity posterior to the 4th ventricle slightly to the right of the midline likely represent encephalomalacia or gliosis and postsurgical changes. Midline occipital craniectomy above the magnum fragment. Interval mild increase in the size of the ventricles since the previous exam. The possibility of mild hydrocephalus is not totally excluded. No evidence of acute intracranial hemorrhage. Otherwise no interval change.
[2017-02-18] MEDS ORDERED: Pneumococcal 23-Valent Vaccine IM ONE (16:08)
[2017-02-18] MEDS ORDERED: Influenza Vaccine 60 mcg/0.5 mL SYR (4YR UP) IM ONE (16:08)
--- NOTE | 2017-02-18 20:12 | CP.PCM.DIS ---
<Ashley Ding - Last Filed: 02/18/17 20:10> Provider - Provider Date of Admission: 02/15/17 08:49 Attending physician: Morena Oneal DO Primary care physician: Dr. Oneal Consults: Heme/Onc: Dr. Gerard Neuro: Dr. Mercedes Uro: Dr. Padilla Neurosurg: Dr. Cary Time Spent in preparation of Discharge (in minutes): 45 Diagnosis - Discharge Diagnosis (1) Chiari I malformation Status: Chronic (2) Urinary retention with incomplete bladder emptying Status: Chronic Priority: High (3) Hypercoagulable state Status: Chronic Hospital Course - Lab Results Lab Results: Micro Results 02/16/17 19:06 Urine,Clean Catch Urine Culture - Final No Growth (<1,000 CFU/ML) Most Recent Lab Values WBC 5.6 K/uL (4.8-10.8) 02/18/17 07:51 RBC 3.99 Mil/uL (3.80-5.20) 02/18/17 07:51 Hgb 11.8 g/dL (11.0-16.0) 02/18/17 07:51 Hct 34.1 % (34.0-47.0) 02/18/17 07:51 MCV 85.5 fL (81.0-99.0) 02/18/17 07:51 MCH 29.6 pg (27.0-31.0) 02/18/17 07:51 MCHC 34.7 g/dL (33.0-37.0) 02/18/17 07:51 RDW 14.2 % (11.5-14.5) 02/18/17 07:51 Plt Count 206 K/uL (130-400) 02/18/17 07:51 MPV 9.3 fL (7.2-11.7) 02/18/17 07:51 Neut % (Auto) 62.9 % (50.0-75.0) 02/18/17 07:51 Lymph % (Auto) 25.2 % (20.0-40.0) 02/18/17 07:51 [place] % (Auto) 9.6 % (0.0-10.0) 02/18/17 07:51 Eos % (Auto) 1.6 % (0.0-4.0) 02/18/17 07:51 Baso % (Auto) 0.7 % (0.0-2.0) 02/18/17 07:51 Neut # 3.5 K/uL (1.8-7.0) 02/18/17 07:51 Lymph # 1.4 K/uL (1.0-4.3) 02/18/17 07:51 [place] # 0.5 K/uL (0.0-0.8) 02/18/17 07:51 Eos # 0.1 K/uL (0.0-0.7) 02/18/17 07:51 Baso # 0.0 K/uL (0.0-0.2) 02/18/17 07:51 Sodium 134 mmol/L (132-148) 02/18/17 07:51 Potassium 3.5 mmol/L (3.6-5.2) L 02/18/17 07:51 Chloride 101 mmol/L (98-107) 02/18/17 07:51 Carbon Dioxide 25 mmol/L (22-30) 02/18/17 07:51 Anion Gap 12 (10-20) 02/18/17 07:51 BUN 7 mg/dL (7-17) 02/18/17 07:51 Creatinine 0.5 mg/dL (0.7-1.2) L 02/18/17 07:51 Est GFR ( Amer) > 60 02/18/17 07:51 Est GFR (Non-Af Amer) > 60 02/18/17 07:51 Random Glucose 108 mg/dL (65-105) H 02/18/17 07:51 Hemoglobin A1c 5.3 % (4.2-6.5) 02/17/17 07:58 Calcium 8.6 mg/dl (8.6-10.4) 02/18/17 07:51 Phosphorus 3.6 mg/dL (2.5-4.5) 02/18/17 07:51 Magnesium 1.7 mg/dL (1.6-2.3) 02/18/17 07:51 Total Bilirubin 0.7 mg/dL (0.2-1.3) 02/18/17 07:51 AST 24 U/L (14-36) 02/18/17 07:51 ALT 27 U/L (9-52) 02/18/17 07:51 Alkaline Phosphatase 46 U/L (38-126) 02/18/17 07:51 Total Protein 7.6 g/dL (6.3-8.3) 02/18/17 07:51 Albumin 4.2 g/dL (3.5-5.0) 02/18/17 07:51 Globulin 3.3 gm/dL (2.2-3.9) 02/18/17 07:51 Albumin/Globulin Ratio 1.3 (1.0-2.1) 02/18/17 07:51 Urine Color Yellow (YELLOW) 02/16/17 14:11 Urine Clarity Clear (Clear) 02/16/17 14:11 Urine pH 7.0 (5.0-8.0) 02/16/17 14:11 Ur Specific [place] 1.017 (1.003-1.030) 02/16/17 14:11 Urine Protein Negative mg/dL (NEGATIVE) 02/16/17 14:11 Urine Glucose (UA) Normal mg/dL (Normal) 02/16/17 14:11 Urine Ketones Negative mg/dL (NEGATIVE) 02/16/17 14:11 Urine Blood 2+ (NEGATIVE) H 02/16/17 14:11 Urine Nitrate Negative (NEGATIVE) 02/16/17 14:11 Urine Bilirubin Negative (NEGATIVE) 02/16/17 14:11 Urine Urobilinogen 2.0 mg/dL (0.2-1.0) H 02/16/17 14:11 Ur Leukocyte Esterase Neg Ceasar/uL (Negative) 02/16/17 14:11 Urine WBC (Auto) 3 /hpf (0-5) 02/16/17 14:11 Urine RBC (Auto) 13 /hpf (0-3) H 02/16/17 14:11 Ur Squamous Epith Cells 2 /hpf (0-5) 02/16/17 14:11 Urine Bacteria Few (<OCC) H 02/16/17 14:11 Blood Type O POSITIVE 02/15/17 09:50 Antibody Screen Negative 02/15/17 09:50 - Hospital Course Hospital Course: "41 year old female with no significant PMHx who is POD #1 of suboccipital craniectomy, c1 laminectomy, duraplasty right cerebellar tonsilectomy. Medicine team consulted on this patient for evaluation and treatment of urinary retention. Patient states she has been having urinary retention for at least 4 months. She states that she has the urge to go to the bathroom but when she does, only a dribble comes out. She has seen a doctor for this problem and had a empty bladder scan. She also seen her chemical compounder helper because she thought her symptoms were due to fibroids but she was found not to have any fibroids. She does complain of some lower back pain. She also complains of a headaches due to her brain pathology and nausea/vomiting since the surgery. Patient denies any focal weakness or sensory loss, saddle anaesthesia, bladder incontinence, hematuria, dysuria, or abdominal pain. Patient was straight cathed today at 11: 45 AM and 800cc's of urine was removed." Hospital Course: This patient is s/p suboccipital craniectomy, c1 laminectomy, duraplasty and right cerebellar tonsillectomy for her diagnosis of Arnold Chiari type 1 malformation. Post operatively, patient was admitted to medicine on 02/15 for management of her 4 month history of urinary retention. On 02/16 straight cath was performed and 800 ccs of urine was removed. Amitryptyline was held due to its potential side effect of urinary retention. Urinalysis showed 2+ urine blood, 2.0 urine urobilinogen, 13 urine RBC, few bacteria. Urine culture showed no growth. Urology was consulted. Neurology was consulted due to her Arnold Chiari history. Lumbar spine CT was ordered to rule out neurological causes and showed a moderately distended urinary bladder with minor central and bilateral disc bulging changes seen at L4-L5 and L5-S1. There was no evidence of significant canal compromise. Patient taught how to use straight catheter. Today patient voided 1000 cc without catheterization. Patient to follow up with urology this week and will go home with straight catheter supplies to use if she is having urinary retention. Patient also was treated for headaches in the region of the surgery which were managed with Tylenol PRN due to patient being unable to tolerate Percocet due to nausea. To evaluate her headache a head CT without contrast was done. Head CT showed 1.3 cm focal hypodensity posterior to the 4th ventricle slightly to the right of midline likely representing encephalomalacia or gliosis and postsurgical changes. Midline occipital craniectomy above the magnum fragment. Patient was advised to on the importance of being off anticoagulation for 2 weeks post surgery. Patient should also call Dr. Cary's office Monday to make an appointment for follow up this week. Patient to also follow up with heme/onc for outpatient management of Protein S deficiency. This is a summary of the patient's hospital course, please see chart for full details. Discharge Exam - Head Exam Head Exam: absent: ATRAUMATIC Additional comments: dressing c/d/i - Eye Exam Eye Exam: EOMI, Normal appearance - Respiratory Exam Respiratory Exam: Clear to PA & Lateral, NORMAL BREATHING PATTERN. absent: Rales, Rhonchi, Wheezes, Respiratory Distress - Cardiovascular Exam Cardiovascular Exam: REGULAR RHYTHM, RRR - GI/Abdominal Exam GI & Abdominal Exam: Normal Bowel Sounds, Soft. absent: Tenderness - Extremities Exam Extremities exam: normal inspection - Neurological Exam Neurological exam: Alert, Oriented x3 - Psychiatric Exam Psychiatric exam: Normal Affect, Normal Mood - Skin Skin Exam: Intact, Normal Color, Warm Discharge Plan - Discharge Medications Prescriptions: Acetaminophen with Codeine [Tylenol with Codeine #3 Tablet] 1 each PO Q4H PRN # 20 tablet PRN Reason: Pain, Severe (8-10) - Follow Up Plan Condition: GOOD Disposition: HOME/ ROUTINE Instructions: How to Catheterize Yourself (Woman) (GEN), Chronic Urinary Retention in Women (DC), Chiari Malformation (DC), Catheter-associated Urinary Tract Infection (DC) Additional Instructions: Patient stable for discharge as per Dr. Oneal and Dr. Cary (neurosurg). Patient to call on Monday02/20/17 to make an appointment with Dr. Cary. Patient to follow up with Dr. Gerard (heme/onc) for her coagulopathy. Patient to follow up with Dr. Padilla (urology) within one week. Patient to follow up with primary care doctor at the [facility] within two weeks. Patient to please return to emergency room for worsening symptoms. Patient explained instructions who understands and agrees. Referrals: [facility] [Provider Group] Wesley Gerard MD [Staff Provider] - Ash Cary MD [Staff Provider] - Mayte Padilla MD [Staff Provider] - <Morena Oneal V - Last Filed: 02/20/17 12:53> Provider - Provider Date of Admission: 02/15/17 08:49 Attending physician: Morena Oneal, DO Hospital Course - Lab Results Lab Results: Micro Results 02/16/17 19:06 Urine,Clean Catch Urine Culture - Final No Growth (<1,000 CFU/ML) Most Recent Lab Values WBC 5.6 K/uL (4.8-10.8) 02/18/17 07:51 RBC 3.99 Mil/uL (3.80-5.20) 02/18/17 07:51 Hgb 11.8 g/dL (11.0-16.0) 02/18/17 07:51 Hct 34.1 % (34.0-47.0) 02/18/17 07:51 MCV 85.5 fL (81.0-99.0) 02/18/17 07:51 MCH 29.6 pg (27.0-31.0) 02/18/17 07:51 MCHC 34.7 g/dL (33.0-37.0) 02/18/17 07:51 RDW 14.2 % (11.5-14.5) 02/18/17 07:51 Plt Count 206 K/uL (130-400) 02/18/17 07:51 MPV 9.3 fL (7.2-11.7) 02/18/17 07:51 Neut % (Auto) 62.9 % (50.0-75.0) 02/18/17 07:51 Lymph % (Auto) 25.2 % (20.0-40.0) 02/18/17 07:51 [place] % (Auto) 9.6 % (0.0-10.0) 02/18/17 07:51 Eos % (Auto) 1.6 % (0.0-4.0) 02/18/17 07:51 Baso % (Auto) 0.7 % (0.0-2.0) 02/18/17 07:51 Neut # 3.5 K/uL (1.8-7.0) 02/18/17 07:51 Lymph # 1.4 K/uL (1.0-4.3) 02/18/17 07:51 [place] # 0.5 K/uL (0.0-0.8) 02/18/17 07:51 Eos # 0.1 K/uL (0.0-0.7) 02/18/17 07:51 Baso # 0.0 K/uL (0.0-0.2) 02/18/17 07:51 Sodium 134 mmol/L (132-148) 02/18/17 07:51 Potassium 3.5 mmol/L (3.6-5.2) L 02/18/17 07:51 Chloride 101 mmol/L (98-107) 02/18/17 07:51 Carbon Dioxide 25 mmol/L (22-30) 02/18/17 07:51 Anion Gap 12 (10-20) 02/18/17 07:51 BUN 7 mg/dL (7-17) 02/18/17 07:51 Creatinine 0.5 mg/dL (0.7-1.2) L 02/18/17 07:51 Est GFR ( Amer) > 60 02/18/17 07:51 Est GFR (Non-Af Amer) > 60 02/18/17 07:51 Random Glucose 108 mg/dL (65-105) H 02/18/17 07:51 Hemoglobin A1c 5.3 % (4.2-6.5) 02/17/17 07:58 Calcium 8.6 mg/dl (8.6-10.4) 02/18/17 07:51 Phosphorus 3.6 mg/dL (2.5-4.5) 02/18/17 07:51 Magnesium 1.7 mg/dL (1.6-2.3) 02/18/17 07:51 Total Bilirubin 0.7 mg/dL (0.2-1.3) 02/18/17 07:51 AST 24 U/L (14-36) 02/18/17 07:51 ALT 27 U/L (9-52) 02/18/17 07:51 Alkaline Phosphatase 46 U/L (38-126) 02/18/17 07:51 Total Protein 7.6 g/dL (6.3-8.3) 02/18/17 07:51 Albumin 4.2 g/dL (3.5-5.0) 02/18/17 07:51 Globulin 3.3 gm/dL (2.2-3.9) 02/18/17 07:51 Albumin/Globulin Ratio 1.3 (1.0-2.1) 02/18/17 07:51 Urine Color Yellow (YELLOW) 02/16/17 14:11 Urine Clarity Clear (Clear) 02/16/17 14:11 Urine pH 7.0 (5.0-8.0) 02/16/17 14:11 Ur Specific [place] 1.017 (1.003-1.030) 02/16/17 14:11 Urine Protein Negative mg/dL (NEGATIVE) 02/16/17 14:11 Urine Glucose (UA) Normal mg/dL (Normal) 02/16/17 14:11 Urine Ketones Negative mg/dL (NEGATIVE) 02/16/17 14:11 Urine Blood 2+ (NEGATIVE) H 02/16/17 14:11 Urine Nitrate Negative (NEGATIVE) 02/16/17 14:11 Urine Bilirubin Negative (NEGATIVE) 02/16/17 14:11 Urine Urobilinogen 2.0 mg/dL (0.2-1.0) H 02/16/17 14:11 Ur Leukocyte Esterase Neg Ceasar/uL (Negative) 02/16/17 14:11 Urine WBC (Auto) 3 /hpf (0-5) 02/16/17 14:11 Urine RBC (Auto) 13 /hpf (0-3) H 02/16/17 14:11 Ur Squamous Epith Cells 2 /hpf (0-5) 02/16/17 14:11 Urine Bacteria Few (<OCC) H 02/16/17 14:11 Blood Type O POSITIVE 02/15/17 09:50 Antibody Screen Negative 02/15/17 09:50 Attending/Attestation - Attestation I have personally seen and examined this patient.: Yes I have fully participated in the care of the patient.: Yes I have reviewed all pertinent clinical information, including history, physical exam and plan: Yes Notes (Text): This is a late computer entry for 02/18/2017. Patient's urination is improving. Patient has been able to use the bathroom about 3 times and about 1 L of urine removed. Patient has been taught by nursing staff in regards to as needed urinary self-catherization. Discussed case with Gilbert Padilla yesterday recommended for either self cath or for Fermin and patient may follow-up with him as outpatient. Urine culture shows no growth. Pro calcitonin is low. Patient reports intense headache report since 10/10 on pain scale has been unable to get Tylenol with codeine unclear why. Patient did have a repeat head CT postoperative. Patient's headache did improve Tylenol with Codeine later in the day. Resident has spoken with neurosurgery which is expected postoperative. Neurosurgery has recommended for patient to follow-up for postoperative management in the office and has recommended patient call office on February 20 for appointment. Neurology workup negative for alternate cause for urinary retention. Lumbar CT ( 02/17/17): minor central and bilateral disc bulging changes seen at L4-L5 and L5- S1 levels as described. No evidence of significant canal compromise. Patient is medically stable for discharge. Amitriptyline was discontinued on discharge given side effect of urinary retention. Prescription, new on discharge: Tylenol with Codeine 1 tab by mouth every 4 as needed for severe pain dispense ( 20 tabs) This is a summary of patient's hospitalization please refer to EMR for further details. Assessment/Plan 1) Urinary Retention- Stable * Mayte Padilla (urology) on case-->help appreciated * Patient has been taught by nursing staff in regards to as needed urinary self-catherization. Discussed case with Gilbert Paidlla (covering. urologist) yesterday recommended for either self cath or for Fermin and patient may follow- up with him as outpatient. Urine culture shows no growth. Pro calcitonin is low. * Dr Mercedes (neurology) on case-->help appreciated * Lumbar CT (02/17/17): minor central and bilateral disc bulging changes seen at L4-L5 and L5-S1 levels as described. No evidence of significant canal compromise. * Reports difficulty urinating for the past 4 months Per nursing notes: * 02/16/17 * 800cc of Urine from Straight Catherization 02/17/16 * Bladder scanned pt after urination and showed >400 <500 residua * 02/17/17 * 316 cc of urine Bladder scan; 200 cc urine straight cath 02/18/16 AM * Patient refused straight cath in afternoon. Was able to void 100cc. Repeat bladder scan more than 300cc and straight cath. * 02/18/17 * pt voided three times today, a total of 1000 cc. DO made aware that first post void volume noted was more than 300 cc but after pt voided the third time, highest post void volume noted was 38. DO made aware that pt states she is able to urinate now because her headache is gone due to Tylenol #3.. * Rn provided demonstration with pt's sister on how to catheterize pt. pt's sister able to perform catheterization and understand the procedur * Will hold Amitriptyline on 02/16/17 due to a potential side effect of urinary retention. * Patient is not diabetic: a1c: 5.3 * monitor intake and out 2) History of Chiari malformation 1 s/p POD 3 suboccupital craniectomy, C1 laminectomy, duraplasty right cerebellar tonsillectomy Headache- Stable * CT Cervical spine (07/22/16): redemonstation of Chair 1 malformation with interval decrease in size of syrinx in the cervical cord ~3mm in anteroposterior dimension. Persistent mild increased distance between the anterior arch of tightness and odontoid process concerning for altantoaxial subluxation * Ct Head (02/18/17): available in the EMR; .13 cm focal hypodensity ~ postsurgical changes * Operative Note (02/15/17): suboccupital craniectomy, C1 laminectomy, duraplasty right cerebellar tonsillectomy * Neurosurgery (Dr. López/Dr. Interiano) is primary and primary for preoperative/intraoperative/postoperative in regards to recent neurosurgery procedure * Patient recommended to follow-up outpatient with neurosurgery. Patient is stable for discharge from neurosurgery standpoint. * Anticoagulation per surgery * No chemical anticoagulation for at least 2 weeks * Pain management per surgery in light of headache * Patient could not tolerate percocet, she threw up from it * From prior EMR 2014, patient had tolerated tylenol with codeine in the past * Tylenol with codeine PRN-->Headache subsides * Discontinue Amitriptline 25mg PO BID side effect urinary incontinence 3) History of Protein S deficiency * Discussed with heme-onc, to follow-up with him outpatient given drawing levels after surgery procedure will be inaccurate * Per neurosurgery, must be off anticoagulation for 2 weeks. Permits for SCDS 4) DVT PPx * SCDs b/l
== END 2017-02-18 17:32 | disposition home or self-care (01) | DRG 1 ==
LOC: C.9S 02-15 08:49 → C.6T 02-15 19:47
PROVIDERS: ADMIT Hospitalist; ATTEND Hospitalist
PROC: 00U20JZ Supplement Dura Mater with Synthetic Substitute, Open Approach (ICD-10-PCS; 2017-02-15)
PROC: 00NC0ZZ Release Cerebellum, Open Approach (ICD-10-PCS; principal; 2017-02-15 12:00)
DX: G93.5 Compression of brain (principal); G95.0 Syringomyelia and syringobulbia; D68.59 Other primary thrombophilia; E87.6 Hypokalemia; R33.8 Other retention of urine

== ENCOUNTER 2017-03-16 11:47 | Emergency (ER) | payer OTHER ==
[2017-03-16 11:48] VITALS: BMI 22.8
--- NOTE | 2017-03-16 12:33 | C.PDOC ---
History Of Present Illness 41-YEAR-OLD FEMALE, PRESENTS TO THE EMERGENCY DEPARTMENT FOR RECUR CAST, BACK PAIN X 5 DAYS. s/p suboccipital craniectomy, c1 laminectomy, duraplasty and right cerebellar tonsillectomy for her diagnosis of Arnold Chiari type 1 malformation. PS WAS DOING WELL W MOTRIN 600 MG UNTIL 5 DAYS AGO. CO GEN "THROBBING" CAST. +NEW ONSET UPPER BACK/LOWER BACK PAIN PRESENT ONLY WHEN WALKING. NO ASSOC NUMB, TINGLING. PS CURRENT NECK MOVEMENT IS UNCHANGED SINCE DC FROM HOSPITAL. PS UNABLE TO TOLERATE NARCOTICS DUE TO NAUSEA. NO FEVER, OTHER ASSOC SX. EXAM MILD DIST NONTOXIC HEENT NO PHOTOPHOBIA NECK LIMITED FULL ROM DUE TO PAIN NONTEND BACK NONTEND ATRAUM NEURO NO FOCAL DEF SKIN NO ERYTHEMA REMAINDER NEG Time Seen by Provider: 03/16/17 12:32 Chief Complaint (Nursing): Headache History Per: Patient History/Exam Limitations: no limitations Onset/Duration Of Symptoms: Days Current Symptoms Are (Timing): Still Present Severity: Moderate Past Medical History Reviewed: Historical Data, Nursing Documentation, Vital Signs Vital Signs: Last Vital Signs Temp 98.5 F 03/16/17 12:10 Pulse 96 H 03/16/17 17:00 Resp 16 03/16/17 17:00 BP 105/57 L 03/16/17 17:00 Pulse Ox 97 03/16/17 17:00 - Medical History PMH: Denies: Deep Vein Thrombosis (on anticoagulants), Chronic Kidney Disease Surgical History: Endoscopy, - [facility] Procedures ESOPHAGOGASTRODUODENOSCOPY [EGD] W/CLOSED BIOPSY (06/17/13) RELEASE CEREBELLUM, OPEN APPROACH (02/15/17) SUPPLEMENT DURA MATER WITH SYNTH SUB, OPEN APPROACH (02/15/17) Family History: States: No Known Family Hx - Social History Hx Tobacco Use: No Hx Alcohol Use: No Hx Substance Use: No - Immunization History Hx Tetanus Toxoid Vaccination: No Hx Influenza Vaccination: No Hx Pneumococcal Vaccination: No Review Of Systems Except As Marked, All Systems Reviewed And Found Negative. Cardiovascular: Negative for: Chest Pain, Palpitations Respiratory: Negative for: Shortness of Breath Gastrointestinal: Positive for: Vomiting Musculoskeletal: Positive for: Back Pain Neurological: Positive for: Headache. Negative for: Numbness, Dizziness Physical Exam - Physical Exam Appears: Non-toxic, No Acute Distress Skin: Warm, Dry, No Rash Head: Atraumatic, Normacephalic Eye(s): bilateral: Other (NO PHOTOPHOBIA ) Nose: Normal Oral Mucosa: Moist Lips: Normal Appearing Neck: Other (LIMITED ROM DUE TO PAIN NONTEND) Chest: Symmetrical Cardiovascular: Rhythm Regular, No Murmur Respiratory: Normal Breath Sounds, No Accessory Muscle Use Back: No Vertebral Tenderness, No Paraspinal Tenderness Extremity: Normal ROM Neurological/Psych: Oriented x3, Normal Speech, Other (No focal deficit) ED Course And Treatment - Laboratory Results Result Diagrams: 03/16/17 13:27 03/16/17 13:27 O2 Sat by Pulse Oximetry: 99 Progress - Re-Evaluation Re-evaluation Note: 03/16/17 14:28 D/W DR SANCHEZ AWARE OF ER FINDINGS. CAST POSSIBLY DUE TO MOTRIN OVERUSE? RECOMMENDS DECADRON 10 MG X 1, MG 2 GM X1, DEPAKOTE 500 MG X 1. DC FIORCET 50 IF IMPROVED 03/16/17 14:54 MIN IMPROVE W CAST. NEURO INTACT 03/16/17 17:47 CAST RESOLVED. ADVISED FU DR SANCHEZ, LIMITED MOTRIN USE. - Data Reviewed Data Reviewed: Lab, Diagnostic imaging, Old records - Continuity of Care Discussed pt. case with literacy consultant/specialty: Neurology Disposition Counseled Patient/Family Regarding: Studies Performed, Diagnosis, Need For Followup, Rx Given - Disposition Referrals: Rolando Sanchez MD [Staff Provider] - [facility] [Outside] [facility] [Outside] Disposition: HOME/ ROUTINE Disposition Time: 17:47 Condition: IMPROVED Prescriptions: Acetaminophen/Butalbital/Caf [Fioricet] 1 tab PO TID PRN #20 tab PRN Reason: Headache Instructions: Acute Headache (ED) Forms: [facility] (Estonian), Work Excuse Print Language: THAI - Clinical Impression Clinical Impression: Headache - Scribe Statement The provider has reviewed the documentation as recorded by the Scribe (Bharti Cruz) All medical record entries made by the Scribe were at my direction and personally dictated by me. I have reviewed the chart and agree that the record accurately reflects my personal performance of the history, physical exam, medical decision making, and the department course for this patient. I have also personally directed, reviewed, and agree with the discharge instructions and disposition.
[2017-03-16] MEDS ORDERED: Sodium Chloride 0.9% 1,000 ML IV ONE (13:07)
[2017-03-16] MEDS ORDERED: Sodium Chloride 0.9% 1,000 ML ONE (13:33)
[2017-03-16 13:38] LABS: BASO % 0.4 % (0.0-2.0); EOS # 0.1 K/uL (0.0-0.7); EOS % 1.5 % (0.0-4.0); HEMOGLOBIN 12.4 g/dL (11.0-16.0); LYMPH # 1.4 K/uL (1.0-4.3); LYMPH % 18.2 % (20.0-40.0); MEAN CELL VOLUME 85.2 fL (81.0-99.0); MEAN CORPUSCULAR HEMOGLOBIN 29.6 pg (27.0-31.0); MEAN CORPUSCULAR HGB CONC 34.8 g/dL (33.0-37.0); MEAN PLATELET VOLUME 9.1 fL (7.2-11.7); MONO # 0.5 K/uL (0.0-0.8); MONO % 6.5 % (0.0-10.0); NEUT # 5.5 K/uL (1.8-7.0); NEUT % 73.4 % (50.0-75.0); RBC 4.19 Mil/uL (3.80-5.20); WHITE BLOOD COUNT 7.5 K/uL (4.8-10.8)
[2017-03-16 13:45] LABS: BLOOD UREA NITROGEN 12 mg/dL (7-17); CALCIUM 9.6 mg/dl (8.6-10.4); GFR AFRICAN-AMERICAN > 60; GFR NON-AFRICAN AMERICAN > 60
--- NOTE | 2017-03-16 14:24 | CT ---
PROCEDURE: CT HEAD WITHOUT CONTRAST. HISTORY: HEADACHE s/p suboccipital craniectomy COMPARISON: Noncontrast head CT performed 02/18/17 TECHNIQUE: Axial computed tomography images were obtained through the head/brain without intravenous contrast. Radiation dose: Total exam DLP = 797.32 mGy-cm. This CT exam was performed using one or more of the following dose reduction techniques: Automated exposure control, adjustment of the mA and/or kV according to patient size, and/or use of iterative reconstruction technique. FINDINGS: HEMORRHAGE: No intracranial hemorrhage. BRAIN: No mass effect, midline shift, or edema appreciated. The arevalo-white matter differentiation appears intact. Fullness of the pituitary gland measuring approximately 8 mm. VENTRICLES: No hydrocephalus. CALVARIUM: Midline occipital craniectomy changes re-identified. PARANASAL SINUSES: Unremarkable as visualized. No significant inflammatory changes. MASTOID AIR CELLS: Unremarkable as visualized. No inflammatory changes. OTHER FINDINGS: None. IMPRESSION: Midline occipital craniectomy changes. Additional findings as above.
[2017-03-16] MEDS ORDERED: Magnesium Sulfate 1 gm in D5W 1 GM/100 ML BAG IV ONE ×2 (14:56→14:58)
[2017-03-16] MEDS ORDERED: Magnesium Sulfate 1 gm in D5W 1 GM/100 ML BAG IVPB ONE ×2 (15:41→16:37)
[2017-03-16] MEDS ORDERED: Divalproex 500 mg DR Tab PO ONE (15:41)
[2017-03-16 18:15] VITALS: BP 106/69; PULSE 92; RESP 20; TEMP 99.4; O2SAT 98
== END 2017-03-16 18:15 | disposition home or self-care (01) ==
LOC: C.ER 11:47
DX: R51 Headache (principal)
CPT/HCPCS: 70450; 80048; 85025; 96361; 96365; 96366; 96375; 99285; J1100; J2765; J3475; J7040

== ENCOUNTER 2017-04-27 14:03 | Emergency (ER) | payer OTHER ==
[2017-04-27 14:04] VITALS: BMI 22.8
--- NOTE | 2017-04-27 15:14 | C.PDOC ---
History Of Present Illness 41 y/o female presents to the ED for evaluation of redness and drainage from incision site to posterior scalp. States that in February she had neurosurgery here with Dr. Cary. Since then, patient has had a headache which she states is relieved with her Fioricet and Naprosyn regimen. Patient is mostly concerned due to bleeding from the site for 10 days, and in the past 2 days the drainage has been a mix of blood and pus. Has next follow up appointment with neurology on Monday. Otherwise denies any associated fever, chills, vomiting, numbness, weakness, neck stiffness, or other complaints. Time Seen by Provider: 04/27/17 14:29 Chief Complaint (Nursing): Abnormal Skin Integrity History Per: Patient History/Exam Limitations: no limitations Onset/Duration Of Symptoms: Days (x10) Current Symptoms Are (Timing): Still Present Quality Of Symptoms: Draining Past Medical History Reviewed: Historical Data, Nursing Documentation, Vital Signs Vital Signs: Last Vital Signs Temp 98.1 F 04/27/17 14:07 Pulse 72 04/27/17 14:07 Resp 20 04/27/17 14:07 BP 99/68 L 04/27/17 14:07 Pulse Ox 98 04/27/17 15:30 - Medical History PMH: Back Problems Denies: Deep Vein Thrombosis (on anticoagulants), Chronic Kidney Disease Other PMH: Thrombophilia, Fibroids Surgical History: Endoscopy, Other Surgeries: Brain surgery 02/2017 - [facility] Procedures ESOPHAGOGASTRODUODENOSCOPY [EGD] W/CLOSED BIOPSY (06/17/13) RELEASE CEREBELLUM, OPEN APPROACH (02/15/17) SUPPLEMENT DURA MATER WITH SYNTH SUB, OPEN APPROACH (02/15/17) Family History: States: Unknown Family Hx - Social History Hx Tobacco Use: No Hx Alcohol Use: No Hx Substance Use: No - Immunization History Hx Tetanus Toxoid Vaccination: No Hx Influenza Vaccination: No Hx Pneumococcal Vaccination: No Review Of Systems Except As Marked, All Systems Reviewed And Found Negative. Constitutional: Negative for: Fever, Chills Gastrointestinal: Negative for: Vomiting Musculoskeletal: Negative for: Neck Pain (or stiffness) Skin: Positive for: Other (bleeding and pus from incision) Neurological: Positive for: Headache. Negative for: Weakness, Numbness Physical Exam - Physical Exam Appears: Non-toxic, No Acute Distress Skin: Warm, Dry Head: Atraumatic, Normacephalic, Other (Posterior scalp: 1 cm region of erythema , wound appears closed. Non-tender. No purulent discharge noted) Eye(s): bilateral: Normal Inspection, PERRL, EOMI Nose: Normal Neck: Normal, Normal ROM, Supple Chest: Symmetrical Cardiovascular: Rhythm Regular, No Murmur Respiratory: Normal Breath Sounds, No Rales, No Rhonchi, No Wheezing Extremity: Bilateral: Atraumatic, Normal Color And Temperature, Normal ROM Neurological/Psych: Oriented x3, Normal Speech, Normal Sensation, Normal Reflexes ED Course And Treatment O2 Sat by Pulse Oximetry: 98 (RA) Pulse Ox Interpretation: Normal Medical Decision Making Medical Decision Making: Time: 15:11 Initial Plan: * Keflex 500 mg PO Will discharge patient home with antibiotics. Patient educated on wound care. Instructed to follow up with neurologist as scheduled. Return precautions discussed in detail, patient verbalized understanding. Disposition - Disposition Referrals: [facility] [Outside] Disposition: HOME/ ROUTINE Disposition Time: 15:43 Condition: GOOD Additional Instructions: Follow up with the medical doctor within 1-2 days. Return if worsened. Prescriptions: Cephalexin [Keflex] 500 mg PO BID #19 capsule Mupirocin 2% Cream [Bactroban 2%] 30 gm EXT TID #3 tube Instructions: Cellulitis (Skin Infection), Adult (DC) Forms: [employer] (Kiswahili) Print Language: TURKISH - Clinical Impression Clinical Impression: Cellulitis - PA / EDUCATIONAL PROGRAM DIRECTOR / Resident Statement MD/DO has reviewed & agrees with the documentation as recorded. - Scribe Statement The provider has reviewed the documentation as recorded by the Scribe (Bekah Dennis) All medical record entries made by the Scribe were at my direction and personally dictated by me. I have reviewed the chart and agree that the record accurately reflects my personal performance of the history, physical exam, medical decision making, and the department course for this patient. I have also personally directed, reviewed, and agree with the discharge instructions and disposition.
[2017-04-27 16:00] VITALS: BP 113/74; PULSE 68; RESP 18; TEMP 97.9
[2017-04-27 18:36] VITALS: O2SAT 98
== END 2017-04-27 16:00 | disposition home or self-care (01) ==
LOC: C.ER 14:03
DX: L03.811 Cellulitis of head [any part, except face] (principal)

== ENCOUNTER 2017-05-05 13:19 | Emergency (ER) | payer OTHER ==
[2017-05-05 13:20] VITALS: BMI 22.8
[2017-05-05] MEDS ORDERED: DiphenhydrAMINE 50 mg/ml Inj IVP STA (14:03)
[2017-05-05] MEDS ORDERED: DiphenhydrAMINE 50 mg/ml Inj ONE (14:15)
[2017-05-05 14:39] LABS: BASO % 0.6 % (0.0-2.0); EOS # 0.1 K/uL (0.0-0.7); EOS % 2.4 % (0.0-4.0); HEMOGLOBIN 11.5 g/dL (11.0-16.0); LYMPH # 1.3 K/uL (1.0-4.3); LYMPH % 27.2 % (20.0-40.0); MEAN CORPUSCULAR HGB CONC 34.1 g/dL (33.0-37.0); MEAN PLATELET VOLUME 9.2 fL (7.2-11.7); MONO # 0.3 K/uL (0.0-0.8); MONO % 6.9 % (0.0-10.0); NEUT % 62.9 % (50.0-75.0); NRBC % 0.1 % (0.0-2.0); RBC 3.97 Mil/uL (3.80-5.20); RED CELL DISTRIBUTION WIDTH 13.7 % (11.5-14.5); WHITE BLOOD COUNT 4.7 K/uL (4.8-10.8)
--- NOTE | 2017-05-05 14:40 | C.PDOC ---
History Of Present Illness 41 year old female, whose PMHx includes AV Malformation, presents to the ED for evaluation of a headache which has been worsening for the past 1-2 weeks. Patient states she underwent surgery by Dr. Delgado on 02/15/17 and was taking her prescriptions and following up regularly with improvement. She also reports associated nausea, vomiting and photophobia. Patient states she took Tramadol, Percocet, and codeine, which caused her to vomit and worsened her symptoms. She denies fever, chills, trauma, LOC, vision change, extremity numbness/weakness. Time Seen by Provider: 05/05/17 13:41 Chief Complaint (Nursing): Headache History Per: Patient History/Exam Limitations: no limitations Onset/Duration Of Symptoms: Other (1-2 weeks ) Current Symptoms Are (Timing): Still Present Quality: "Pain" Associated Symptoms: Photophobia, Nausea, Vomiting Additional History Per: Patient Past Medical History Reviewed: Historical Data, Nursing Documentation, Vital Signs Vital Signs: Last Vital Signs Temp 99.0 F 05/05/17 16:19 Pulse 86 05/05/17 16:19 Resp 17 05/05/17 16:19 BP 100/67 05/05/17 16:19 Pulse Ox 99 05/05/17 16:19 - Medical History PMH: Back Problems Denies: Deep Vein Thrombosis (on anticoagulants), Chronic Kidney Disease Surgical History: Endoscopy, - [facility] Procedures ESOPHAGOGASTRODUODENOSCOPY [EGD] W/CLOSED BIOPSY (06/17/13) RELEASE CEREBELLUM, OPEN APPROACH (02/15/17) SUPPLEMENT DURA MATER WITH SYNTH SUB, OPEN APPROACH (02/15/17) Family History: States: Unknown Family Hx - Social History Hx Tobacco Use: No Hx Alcohol Use: No Hx Substance Use: No - Immunization History Hx Tetanus Toxoid Vaccination: No Hx Influenza Vaccination: No Hx Pneumococcal Vaccination: Yes (03/2017) Review Of Systems Eyes: Positive for: Other (photophobia ). Negative for: Vision Change Gastrointestinal: Positive for: Nausea, Vomiting Neurological: Positive for: Headache. Negative for: Weakness, Numbness, Other ( LOC ) Physical Exam - Physical Exam Appears: Non-toxic, No Acute Distress Skin: Normal Color, Warm, Dry, No Rash Head: Atraumatic, Normacephalic Eye(s): bilateral: Normal Inspection, Other (no nystagmus) Oral Mucosa: Moist Neck: Normal ROM, Supple Chest: Symmetrical, No Deformity, No Tenderness Cardiovascular: Rhythm Regular, No Friction Rub, No Murmur Respiratory: Normal Breath Sounds, No Rales, No Rhonchi, No Wheezing Gastrointestinal/Abdominal: Soft, No Tenderness Back: Normal Inspection, No CVA Tenderness Extremity: Normal ROM, No Tenderness, Capillary Refill (less than 2 seconds ), No Swelling Neurological/Psych: Oriented x3, Normal Speech, Normal Cognition, Normal Motor, Normal Sensation Gait: Steady ED Course And Treatment - Laboratory Results Result Diagrams: 05/05/17 14:32 05/05/17 14:32 O2 Sat by Pulse Oximetry: 100 (on RA ) Pulse Ox Interpretation: Normal Medical Decision Making Medical Decision Making: Progress: Bloodwork and UA ordered and reviewed. Benadryl IVP, Reglan IVP and Toradol IVP administered. On re-exam, the patient reports improvement of symptoms. Lungs are CTA, heart is RRR, abdomen is soft, non-tender and tolerating Po well. Ambulatory in the ED with steady gait. Follow up with the medical doctor/clinic within 1-2 days. Return if worsened. Disposition - Disposition Referrals: [facility] [Outside] Disposition: HOME/ ROUTINE Disposition Time: 15:59 Condition: GOOD Additional Instructions: Follow up with the medical doctor/clinic within 1-2 days without fail. Return if worsened. Prescriptions: Metoclopramide [Reglan] 1 tab PO TID PRN #25 tab PRN Reason: Nausea/Vomiting Instructions: Migraine Headache (DC) Forms: [employer] (Lebanese) Print Language: GREENLANDIC - Clinical Impression Clinical Impression: Migraine - PA / MAKE UP ARRANGER / Resident Statement MD/DO has reviewed & agrees with the documentation as recorded. - Scribe Statement The provider has reviewed the documentation as recorded by the Scribe All medical record entries made by the Scribe were at my direction and personally dictated by me. I have reviewed the chart and agree that the record accurately reflects my personal performance of the history, physical exam, medical decision making, and the department course for this patient. I have also personally directed, reviewed, and agree with the discharge instructions and disposition.
[2017-05-05 14:50] LABS: BLOOD UREA NITROGEN 5 mg/dL (7-17)
[2017-05-05 14:51] LABS: ALB/GLOB RATIO 1.4 (1.0-2.1); ALBUMIN 4.6 g/dL (3.5-5.0); ALT/SGPT 30 U/L (9-52); AST/SGOT 18 U/L (14-36); CALCIUM 8.8 mg/dl (8.6-10.4); GFR AFRICAN-AMERICAN > 60; GFR NON-AFRICAN AMERICAN > 60
[2017-05-05 15:27] LABS: SQUAMOUS EPITHIAL 21 /hpf (0-5); URINE BACTERIA MANY (<OCC); URINE BILIRUBIN NEGATIVE (NEGATIVE); URINE BLOOD 1+ (NEGATIVE); URINE CLARITY Hazy (Clear); URINE COLOR Straw (YELLOW); URINE GLUCOSE (UA) NORMAL (Normal); URINE LEUKOCYTE ESTERASE NEG Leu/uL (Negative); URINE PROTEIN NEGATIVE (NEGATIVE); URINE UROBILINOGEN NORMAL mg/dL (0.2-1.0)
[2017-05-05 16:20] VITALS: BP 100/67; PULSE 86; RESP 17; TEMP 99
[2017-05-06 21:56] VITALS: O2SAT 100
== END 2017-05-05 16:39 | disposition home or self-care (01) ==
LOC: C.ER 13:19
DX: G43.909 Migraine, unspecified, not intractable, without status migrainosus (principal)
CPT/HCPCS: 80053; 81001; 84703; 85025; 96374; 96375; 99284; J1200; J1885; J2765

== ENCOUNTER 2017-05-11 13:31 | Emergency (ER) | payer OTHER ==
[2017-05-11 13:34] VITALS: BMI 23.3
--- NOTE | 2017-05-11 16:14 | CT ---
PROCEDURE: CT HEAD WITHOUT CONTRAST. HISTORY: History of repaired AVM. Worse headache COMPARISON: Comparison made with prior CT scan brain 03/16/2017 and prior MRI of the brain dated 08/28/2014. TECHNIQUE: Axial computed tomography images were obtained through the head/brain without intravenous contrast. Radiation dose: Total exam DLP = 747.83 mGy-cm. This CT exam was performed using one or more of the following dose reduction techniques: Automated exposure control, adjustment of the mA and/or kV according to patient size, and/or use of iterative reconstruction technique. FINDINGS: HEMORRHAGE: No acute parenchymal, subarachnoid or extra-axial the hemorrhage. BRAIN: Re- demonstrated is changes of Chiari 1 malformation . There appears to have been interval partial resection of the resection posterior arch C1 segment and possibly partial on inferior suboccipital craniectomy. 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 Ventricles do not appear to be under tension. Prominent pituitary gland felt to be physiologic. CALVARIUM: As above. No evidence of acute calvarial fractures. PARANASAL SINUSES: Unremarkable as visualized. No significant inflammatory changes. MASTOID AIR CELLS: Unremarkable as visualized. No inflammatory changes. OTHER FINDINGS: None. IMPRESSION: Findings consistent with Chiari 1 malformation for which there has been partial resection of the posterior elements of the C1 segment as well as suspected partial suboccipital craniectomy. Relatively large residual pseudomeningocele within the mid posterior suboccipital soft tissues extending inferiorly into the upper posterior cervical region. . Prominent ventricles however there is no evidence to suggest obstructive hydrocephalus the ventricles do not appear to be under tension. No acute intracranial hemorrhage. Incidental note made of prominent pituitary gland likely physiologic.
--- NOTE | 2017-05-11 16:15 | C.PDOC ---
History Of Present Illness 40 y/o female with history of Brain surgery in 02/2017 for Chiari Malformation presents to ED with complaints of worsening headache since 05/01 after she was prescribed new pain medication by Dr. Bishop (neurologist). Patient states after taking first dose of Nortryptilline, headache became worse and does not improve with aleve, as it had in past. Patient was seen 04/27 for headache and 05/05 for same symptoms in ED and currently denies nausea, vomiting, vision changes, fever , chills or any other complaints at this time. pt was started on Topamax a few days ago from neurologist but no improvement yet. Time Seen by Provider: 05/11/17 14:32 Chief Complaint (Nursing): Headache History Per: Patient History/Exam Limitations: no limitations Onset/Duration Of Symptoms: Days Current Symptoms Are (Timing): Still Present Past Medical History Reviewed: Historical Data, Nursing Documentation, Vital Signs Vital Signs: Last Vital Signs Temp 98.1 F 05/11/17 16:45 Pulse 77 05/11/17 18:23 Resp 16 05/11/17 18:23 BP 100/66 05/11/17 18:23 Pulse Ox 100 05/14/17 21:52 - Medical History PMH: Back Problems Denies: Deep Vein Thrombosis (on anticoagulants) Surgical History: Endoscopy, - [facility] Procedures ESOPHAGOGASTRODUODENOSCOPY [EGD] W/CLOSED BIOPSY (06/17/13) RELEASE CEREBELLUM, OPEN APPROACH (02/15/17) SUPPLEMENT DURA MATER WITH SYNTH SUB, OPEN APPROACH (02/15/17) Family History: States: No Known Family Hx - Social History Hx Tobacco Use: No Hx Alcohol Use: No Hx Substance Use: No - Immunization History Hx Tetanus Toxoid Vaccination: No Hx Influenza Vaccination: No Hx Pneumococcal Vaccination: Yes (03/2017) Review Of Systems Constitutional: Negative for: Fever, Chills Eyes: Negative for: Vision Change Neurological: Positive for: Headache. Negative for: Weakness, Numbness, Dizziness Physical Exam - Physical Exam Appears: Non-toxic, No Acute Distress Skin: Warm, Dry, No Rash Head: Atraumatic, Normacephalic Eye(s): bilateral: Normal Inspection (No nystagmus), PERRL, EOMI Oral Mucosa: Moist Neck: Normal ROM, Supple Cardiovascular: Rhythm Regular Respiratory: Normal Breath Sounds, No Rales, No Rhonchi, No Wheezing Gastrointestinal/Abdominal: Soft, No Tenderness, No Guarding, No Rebound Extremity: Normal ROM, Capillary Refill (<2 seconds) Neurological/Psych: Oriented x3, Normal Speech, Normal Cognition, Normal Cranial Nerves, Normal Motor, Normal Sensation Gait: Steady ED Course And Treatment O2 Sat by Pulse Oximetry: 100 (RA) Pulse Ox Interpretation: Normal Progress Note: CT scan, Medical Decision Making Medical Decision Making: message left for Neuro Dr Bishop 426 pm discussed pt and head ct results with Dr Bishop, recommends that pt continue with Topamax, requests pt gets RX for Tramadol for severe pain, and f/ u in 1-[address]. [address] Cary be made aware of pseudomeningiocele on ct scan, message left for him. [address] Cary ct result from today- nothing to do. pt feeling better. will d/c with same medications and pt to f/u with Dr Bishop (neuro ), and with a lead painter. pt understands and agrees with plan. Disposition Discussed With Dr.: Mattie Bishop Doctor Will See Patient In The: Office Counseled Patient/Family Regarding: Studies Performed, Diagnosis, Need For Followup, Rx Given - Disposition Referrals: Mattie Bishop MD [Staff Provider] - Girma Chris MD [Staff Provider] - Eli Boyd MD [Staff Provider] - Disposition: HOME/ ROUTINE Disposition Time: 18:05 Condition: IMPROVED Additional Instructions: Por favor anand Aleve deirdre has estado; Contine tomando Topamax y siga con el Dr. Bishop la prxima semana. [place] Tramadol para el dolor iwona. Adelante con el manejo del dolor tambin. Prescriptions: traMADol [Ultram] 50 mg PO Q6 PRN #10 tab PRN Reason: Pain, Severe (8-10) Instructions: Headache, Adult (DC) Forms: Gen Discharge Inst Icelandic, [facility] (Icelandic) Print Language: ENGLISH - Clinical Impression Clinical Impression: Headache - PA / FRICKERTRON CHECKER / Resident Statement /DO has reviewed & agrees with the documentation as recorded. - Scribe Statement The provider has reviewed the documentation as recorded by the Enrico Segura All medical record entries made by the Scribe were at my direction and personally dictated by me. I have reviewed the chart and agree that the record accurately reflects my personal performance of the history, physical exam, medical decision making, and the department course for this patient. I have also personally directed, reviewed, and agree with the discharge instructions and disposition.
[2017-05-11 16:46] VITALS: TEMP 98.1
[2017-05-11 18:25] VITALS: BP 100/66; PULSE 77; RESP 16
[2017-05-14 21:48] VITALS: O2SAT 100
== END 2017-05-11 18:25 | disposition home or self-care (01) ==
LOC: C.ER 13:31
DX: R51 Headache (principal)
CPT/HCPCS: 70450; 96374; 96375; 99285; J1885; J2765